=== PATIENT | female | born 1965 | race Two or more races ===

== ENCOUNTER 2023-05-17 20:29 | Emergency (ER) | payer MEDICAID, SELFPAY ==
--- NOTE | ~2023-05-17 | XR_ITS ---
EXAMINATION: XR KNEE, RIGHT CLINICAL INFORMATION: Pain COMPARISON: None available. TECHNIQUE: Four views of the right knee. FINDINGS: No significant joint effusion. Tricompartmental degenerative changes are present with osteophyte formation and mild loss of joint space more so in the medial compartment. No acute fracture or dislocation. No bony destructive lesions or periosteal reaction. XR/XR knee RT 3V IMPRESSION: Tricompartmental degenerative changes but no acute fracture or dislocation.
[2023-05-17 20:38] VITALS: BP 158/104; PULSE 99; RESP 18; TEMP 36.4; O2SAT 97; BMI 47.5
--- OUTSIDE RECORDS SUMMARY | 2023-05-17 20:58 | XMS_ITS | Continuity of Care Document ---
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
--- OUTSIDE RECORDS SUMMARY | 2023-05-17 20:58 | XMS_ITS | Continuity of Care Document ---
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 Role Phone Macy Quan Primary Care Physician [place] [facility] [place](s): 10/22/21 - 10/22/[address] [id number] Discharge Disposition: A-D/C Home Attending Physician: Arian Fenton MD Admitting Physician: Arian Fenton MD Referring Physician: Arian Fenton MD Allergies, Adverse Reactions, Alerts No Known Medication Allergies Medications OxyCODONE IR Tablet 5 mg, Tablet, By Mouth, Every 4 hours, in PACU ONLY, if patient can tolerate PO, PRN for Pain , Mild, Routine, 10/22/21 10:46:00 EDT Start Date: 10/22/21 Stop Date: 10/22/21 Status: Discontinued Vitamin D3 oral tablet 1 tablet = 10 mcg, By Mouth, Daily, 0 Refills, Maintenance, 10/18/21 12:07:00 EDT, Partial fill upon patient request if the prescription is for a schedule II opioid drug. Start Date: 10/18/21 Status: Ordered Problem List Condition Effective Dates Status Health Status Inform ant Severe obesity(Confirmed) Active Vital Signs Most recent to oldest [Reference Range]: 1 2 3 Height 157.48 cm (10/22/21 9:30 AM) 157.48 cm (10/18/21 12:15 PM) Weight 109.09 kg (10/22/21 9:30 AM) 109.09 kg (10/18/21 12:15 PM) Oxygen Saturation [94-100 %] 100 % (10/22/21 11:15 AM) 100 % (10/22/21 11:00 AM) 100 % (10/22/21 10:45 AM) Pulse Rate [55-90 bpm] 90 bpm (10/22/21 9:30 AM) Body Mass Index [18.5-24.99] 43.99 *>HHI* (10/22/21 9:30 AM) 43.99 *>HHI* (10/18/21 12:15 PM) Blood Pressure [90-138/55-84 mm Hg] 115/99mm Hg (10/22/21 11:15 AM) 124/73mm Hg (10/22/21 11:00 AM) 124/73mm Hg (10/22/21 10:45 AM) Respiratory Rate [16-30 br/min] 22 br/min (10/22/21 11:28 AM) 15 br/min *L* (10/22/21 11:15 AM) 21 br/min (10/22/21 11:00 AM) Temperature [96.8-100.4 DegF] 97.1 DegF (10/22/21 11:15 AM) 97 DegF (10/22/21 10:45 AM) 97 DegF (10/22/21 9:30 AM) Liters per Minute 5 L/min (10/22/21 10:45 AM) Mode of Delivery (Oxygen) Room air (10/22/21 11:15 AM) Room air (10/22/21 11:00 AM) Simple face mask (10/22/21 10:45 AM) Temperature Route Temporal (10/22/21 11:15 AM) Temporal (10/22/21 10:45 AM) Temporal (10/22/21 9:30 AM) Dry Weight 115.1 kg (10/22/21 9:30 AM) 109.09 kg (10/18/21 12:15 PM) Dry Weight Obtained Via Standing scale (10/22/21 9:30 AM)
--- NOTE | 2023-05-17 22:19 | ED_ITS ---
HPI - Extremity Injury (Lower) General Chief Complaint: Extremity Injury, Lower Stated Complaint: knee inj - fall Time Seen by Provider: 05/17/23 21:43 Source: patient Mode of arrival: ambulatory Limitations: no limitations History of Present Illness HPI Narrative: 57 yo female not on thinners fall yesterday mechanical when trying to get up injured R knee now swollen and painful has prior issues and injury to that same knee complaint: knee injury Onset (ago): day(s) (1) Injury: Right: knee Type of Injury: other (possible twisting getting up) Place: home Severity: moderate Relieving factors: rest Exacerbating factors: weight bearing, movement and palpation Context: fall Associated symptoms: swelling Other symptoms: none Related Data Previous Rx's Medication Instructions Recorded hydrocodone 5 mg-acetaminophen 325 1 tab PO Q6H PRN pain #10 tabs 05/17/23 mg tablet Allergies Allergy/AdvReac Type Severity Reaction Status Date / Time No Known Allergies Allergy Verified 05/17/23 20:44 Review of Systems Review of Systems: Constitutional : No Fever, No Chills Cardiovascular : No Chest Pain, No SOB Respiratory : No Cough, No Dyspnea Gastrointestinal : No Nausea, No Vomiting, No Diarrhea, No abdominal Pain Genitourinary : No Dysuria, No Hematuria Musculoskeletal : positive joint pain, No Myalgias, pos Joint Swelling Skin : No Skin lacerations, No rash Neuro : No Weakness, No Numbness, No Loss of Consciousness, No Dizziness, No Headache Psych : No Anxiety/Panic, No Depression All other systems reviewed and are negative [facility] Past Medical History Attestation statement: The following information was validated with the patient. Medical History Arthritis Social History Social History (Updated 05/17/23 @ 22:24 by Laurel Ngo DO) Patient Tobacco Use Status: Never used Tobacco Physical Exam Vital Signs: Vital Signs: Last Vital Signs Temp 97.6 F 05/17/23 20:38 Pulse 99 05/17/23 20:38 Resp 18 05/17/23 20:38 BP 158/104 H 05/17/23 20:38 Pulse Ox 97 05/17/23 20:38 O2 Del Method Room Air 05/17/23 20:38 BMI result Body Mass Index 47.5 Appearance: Alert. Oriented X3. No acute distress. Eyes: Pupils equal, round and reactive to light. ENT: Pharynx normal. Neck: Normal inspection. Neck supple. CVS: Normal heart rate and rhythm. Pulses normal. Respiratory: No respiratory distress. Breath sounds normal. Abdomen: Soft and nontender. Skin: Skin warm and dry. Normal skin color. Normal skin turgor. Extremities: No lower extremity edema. R knee small effusion distal NV intact ttp along medial joint line quad tendon and patella appear intact can make muscle can flex and dorsi flex foot Neuro: Oriented X 3. No motor deficit. No sensory deficit. Medical Decision Making Medical Decision Making [facility] Narrative: 57 yo female with hx of arthritis, scoliosis fell last night no head trauma or LOC reported tried to get up and injured R knee and now has pain and swelling in R knee - distal NV intact, quad and patella tendon appear intact has small effusion at this time immobilizer xray ordered. PO pain medications PCP referral Differential Diagnosis Differential Diagnoses: The differential diagnosis associated with the presentation includes sprain, strain, fracture Independent Interpretation I performed an independent interpretation of an: Plain X-Ray (no fracture) Radiology Impression Discussion of test interpretation with radiology: I have reviewed the radiologist's reading. Prescription Management I considered prescription management with: Pain Medication Procedures Orthopedic Splinting/Casting Injury #1: Side: right Lower Extremity Injury Location: knee Lower Extremity Immobilizer: knee immobilizer Discharge Plan Discharge Clinical Impression: Right knee sprain Qualifiers: Encounter type: initial encounter Involved ligament of knee: unspecified ligament Qualified Code(s): S83.91XA - Sprain of unspecified site of right knee, initial encounter Effusion of knee Qualifiers: Laterality: right Qualified Code(s): M25.461 - Effusion, right knee Patient Disposition: Home, Self-Care Instructions: Knee Sprain (DC), Swollen Knee Joint (ED) Additional Instructions: wear immobilizer for the next week call your primary care doctor for possible MRI if not better return for worsening swelling, pain, numbness tingling or any other concerns. Prescriptions: New hydrocodone-acetaminophen 5-325 mg tablet 1 tab PO Q6H PRN (Reason: pain) Qty: 10 0RF Rx Instructions: partial fill okay; Partial Fill upon patient request. Stand Alone Forms: Work/School Release
== END 2023-05-17 22:36 | disposition home or self-care (01) ==
PROVIDERS: Emergency Provider Emergency Medicine; PCP Registered Nurse
DX: S83.91XA Sprain of unspecified site of right knee, initial encounter (principal); W19.XXXA Unspecified fall, initial encounter; M25.461 Effusion, right knee; Y93.9 Activity, unspecified; Y92.9 Unspecified place or not applicable; Y99.9 Unspecified external cause status
CPT/HCPCS: 73562; 99282; 99283

== ENCOUNTER 2024-05-04 12:40 | Emergency (ER) | payer MEDICAID, SELFPAY ==
--- NOTE | 2024-05-04 12:56 | ED_ITS ---
HPI - Ear Problem General Chief complaint: Ear Problems Stated complaint: Ear infection Time Seen by Provider: 05/04/24 12:58 Source: patient Mode of arrival: ambulatory Limitations: no limitations History of Present Illness ED Provider: Lucio Davidson PA-C HPI Narrative: 50-year-old female presents to the ER for evaluation of left ear pain and muffled hearing for the last several days. She reports pain when she touches the outside of her ear, pain with swallowing and chewing. She states she sounds like she is underwater when she talks. She denies any drainage from the ear. No fever or chills. No pain in the right ear. No neck pain or dental pain. MD Complaint: ear pain and decreased hearing Location: left ear Duration: constant Severity: moderate Relieving factors: nothing Exacerbating factors: chewing, position of head and palpation Discharge from ear: no Associated symptoms ear: decreased hearing Treatment prior to arrival: none Related Data Previous Rx's ?Medication ?Instructions ?Recorded hydrocodone 5 mg-acetaminophen 325 1 tab PO Q6H PRN pain #10 tabs 05/17/23 mg tablet amoxicillin 875 mg-potassium 1 tab PO BID #14 tabs 05/04/24 clavulanate 125 mg tablet ofloxacin 0.3 % ear drops 10 drp otic (ears) DAILY 7 days 05/04/24 #10 mL Allergies Allergy/AdvReac Type Severity Reaction Status Date / Time No Known Allergies Allergy Verified 05/04/24 12:58 Review of Systems Review of Systems: Yes all other systems are reviewed and are negative [facility] Past Medical History Medical History Arthritis Social History Social History (Updated 05/17/23 @ 22:24 by Laurel Ngo DO) Patient Tobacco Use Status: Never used Tobacco Advance Directives: No Advance Directives Information Provided: Yes Physical Exam Vital Signs: Vital Signs: Last Vital Signs Temp 98.0 F 05/04/24 13:10 Pulse 97 05/04/24 13:10 Resp 20 05/04/24 13:10 BP 160/102 H 05/04/24 13:10 Pulse Ox 95 05/04/24 13:10 O2 Del Method Room Air 05/04/24 13:10 BMI result Body Mass Index 46.8 Appearance: Alert. Oriented X3. No acute distress. HEENT: normal inspection of the head and face. right EAC with cerumen partially obstructing the TM. left EAC diffusely swollen and boggy w/ white discharge, unable to visualize the TM. no mastoid tenderness. CVS: Normal heart rate and rhythm. Pulses normal. Respiratory: No respiratory distress. Skin: Skin warm and dry. Normal skin color. Normal skin turgor. No rashes. Extremities: normal inspection x4, no peripheral edema Neuro: Oriented X 3. grossly normal, nonfocal Medical Decision Making Medical Decision Making [facility] Narrative: 58-year-old female presents the ER for evaluation of left ear pain. Exam is consistent with otitis externa, unable to visualize TMs will empirically treat for otitis media as well. Patient counseled on diagnosis, treatment, management and return precautions. She will follow up with her PCP as needed. Stable for discharge home Differential Diagnosis Differential Diagnoses: The differential diagnosis associated with the presentation includes Otitis media, otitis externa, malignant effusion, mastoiditis Prescription Management I considered prescription management with: Pain Medication and Antibiotic Critical Care Time Critical Care Time Critical Care Time: No Discharge Plan Discharge Clinical Impression: Otitis externa Qualifiers: Otitis externa type: diffuse Chronicity: acute Laterality: left Qualified Code(s): H60.312 - Diffuse otitis externa, left ear Patient Disposition: Home, Self-Care Instructions: Otitis Externa (DC) Additional Instructions: Take the prescribed antibiotics as directed, complete the entire course and do not miss any doses Use the prescribed ear drops once per day for 1 week Do not get water in your ear Take motrin and tylenol as needed for pain Follow up with your doctor If you develop new or worsening symptoms call 911 or come back to the ER for further evaluation. Prescriptions: New ofloxacin 0.3 % drops 10 drp otic (ears) DAILY 7 Days Qty: 10 0RF amoxicillin-pot clavulanate 875-125 mg tablet 1 tab PO BID Qty: 14 0RF No Action hydrocodone-acetaminophen 5-325 mg tablet 1 tab PO Q6H PRN (Reason: pain) Qty: 10 0RF Rx Instructions: partial fill okay; Partial Fill upon patient request. Interventions: ED Discharge Assessment Last Done: 05/04/24 13:10 Discharge Date/Time: 05/04/24 13:11 Print Language: Swiss
[2024-05-04 12:57] VITALS: BP 160/102; PULSE 97; RESP 20; TEMP 36.7; O2SAT 95; BMI 46.8
[2024-05-04 13:10] VITALS: BP 160/102; PULSE 97; RESP 20; TEMP 36.7; O2SAT 95
--- OUTSIDE RECORDS SUMMARY | 2024-05-04 14:53 | XMS_ITS | Clinical Summary ---
Author Organization 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 Phone Macy Wang Primary Care Provider Unavailab le Social History Tobacco Use Types Packs/Day Years Used Date Smoking Tobacco: Never Assessed Sex and Gender Information Value Date Recorded Sex Assigned at Not on file Gender Identity Not on file Sexual Orientation Not on file Last Filed Vital Signs Vital Sign Reading Time Taken Comments Blood Pressure 138/76 01/27/2022 11:48 AM EDT L Arm Pulse 98 01/27/2022 11:48 AM EDT Temperature - - Respiratory Rate - - Oxygen Saturation - - Inhaled Oxygen Concentration - - Weight - - Height - - Body Mass Index - - Plan of Treatment Health Maintenance Due Date Last Done Comments Breast Cancer Screening 1965 DTaP,Tdap,and Td Vaccines (1 - Tdap) 1984 Hepatitis B Vaccines (1 of 3 - 19+ 3-dose series) 1984 Cervical Cancer Screening: P ap Smear 1986 Zoster Vaccines (1 of 2) 12/25/2015 Colorectal Cancer Screening: Colonoscopy 03/17/2022 Depression Screening 03/17/2022 HIV Screening 03/17/2022 Hepatitis C Screening 03/17/2022 Social Influencers of Health Screening 03/17/2022 COVID-19 Vaccine ( - 2023-2 5 season) 2023 Influenza Vaccine (#1) 2023 HIB Vaccines Aged Out No longer eligi ble based on patient's age to complete this topic HPV Vaccines Aged Out No longer eligi ble based on patient's age to complete this topic Hepatitis A Vaccines Aged Out No long er eligible based on patient's age to complete this topic IPV Vaccines Aged Out No longer eligi ble based on patient's age to complete this topic MMR Vaccines Aged Out No longer eligi ble based on patient's age to complete this topic Meningococcal ACWY Vaccine Aged Out N o longer eligible based on patient's age to complete this topic Pneumococcal Vaccine: Pediat rics (0 to 5 Years) and At-Risk Patients (6 to 64 Years) Aged Out No longer eligible b ased on patient's age to complete this topic RSV Immunization Patients Un verna 20 months Aged Out No longer eligible b ased on patient's age to complete this topic Varicella Vaccines Aged Out No longer eligible based on patient's age to complete this topic Care Teams Red Hat Linux Engineer Relationship Specialty Start Date End Date Macy Wang PA Need Updated Address PCP - General 07/18/21
== END 2024-05-04 13:11 | disposition home or self-care (01) ==
LOC: HO.ED 13:06
PROVIDERS: Emergency Provider Emergency Medicine
DX: H60.312 Diffuse otitis externa, left ear (principal)
CPT/HCPCS: 99282; 99283

== ENCOUNTER 2024-07-04 21:36 | Emergency (ER) | payer MEDICAID, SELFPAY ==
[2024-07-04 21:39] VITALS: BP 151/119; PULSE 93; RESP 16; TEMP 36.6; O2SAT 99; BMI 46.8
--- NOTE | 2024-07-05 01:13 | ED_ITS ---
HPI - General Adult General Chief complaint: Ear Problems Stated complaint: Right Ear infection / in pain Time Seen by Provider: 07/05/24 01:06 Source: patient, RN notes reviewed and old records reviewed Mode of arrival: ambulatory Limitations: no limitations History of Present Illness ED Provider: Marisel HPI narrative: 58-year-old female who denies any past medical history presents for evaluation of right ear pain. Patient reports she was infection a couple of months ago in the left side She now reports that she has the same pain but on the right ear She did not stick anything in the ear other than Debrox drops She denies any drainage from the ear No other concerns at this time Related Data Previous Rx's ?Medication ?Instructions ?Recorded hydrocodone 5 mg-acetaminophen 325 1 tab PO Q6H PRN pain #10 tabs 05/17/23 mg tablet amoxicillin 875 mg-potassium 1 tab PO BID #14 tabs 05/04/24 clavulanate 125 mg tablet ofloxacin 0.3 % ear drops 10 drp otic (ears) DAILY 7 days 05/04/24 #10 mL amoxicillin 875 mg-potassium 1 tab PO Q12H #20 tabs 07/05/24 clavulanate 125 mg tablet Allergies Allergy/AdvReac Type Severity Reaction Status Date / Time No Known Allergies Allergy Verified 07/04/24 21:41 Review of Systems Constitutional: Constitutional: Denies body ache(s), Denies chills and Denies fever(s) Eyes: Eyes: Denies blurry vision ENT: Denies ear discharge, Reports otalgia and Denies sore throat Cardiovascular: Cardiovascular: Denies chest pain and Denies dyspnea Respiratory: Respiratory: Denies cough and Denies dyspnea Gastrointestinal: Gastrointestinal: Denies abdominal pain [facility] Past Medical History Medical History Arthritis Social History Social History (Updated 05/17/23 @ 22:24 by Laurel Ngo DO) Patient Tobacco Use Status: Never used Tobacco Advance Directives: No Advance Directives Information Provided: Yes Do you have a plan to hurt others: No Plan Physical Exam ED Vital Signs: Vital Signs - 24 hr 07/04/24 21:39 Temperature 97.8 F Pulse Rate 93 Respiratory Rate 16 Blood Pressure 151/119 H Pulse Oximetry 99 Oxygen Delivery Method Room Air BMI result Body Mass Index 46.8 Const General: healthy appearing, comfortable, no acute distress, alert and awake Nutritional Appearance: well nourished Orientation/consciousness: patient oriented x3 HENMT Other: There is mild cerumen buildup in the right external ear canal but no impaction. No mastoid tenderness, no posterior auricular edema Head: Yes normocephalic and Yes atraumatic Ears: right TM abnormal (TM erythematous and bulging) and TM normal on the left Eyes Eyelids: Yes eyelids normal Conjunctivae: conjunctivae normal Sclerae: sclerae normal Corneas: corneas normal Pupils: Equal, round and reactive pupils present EOM: EOMs intact bilaterally Neck Neck: Yes full ROM Resp Effort & Inspection: normal respiratory effort, able to speak in complete sentences and not labored Skin General skin exam: elasticity normal Neuro General: patient oriented x3 Cranial nerves: Yes Equal, round and reactive pupils present and Yes Bilaterally intact EOM present Cognition (Neuro): normal cognition Extrem Other: Moving all extremities well without any obvious deformities Medical Decision Making Medical Decision Making MDM Narrative: 58-year-old female presents for evaluation of right ear pain. She did not stick anything in her ear, her exam is consistent with the acute right otitis media. No evidence of mastoiditis or otitis externa. We will discharge the patient with Augmentin which she took 2 months ago with good relief of her left ear pain Differential Diagnosis Differential Diagnoses: The differential diagnosis associated with the presentation includes Otitis media Otitis externa Middle ear effusion Mastoiditis Discharge Plan Discharge Clinical Impression: Otitis media Patient Disposition: Home, Self-Care Instructions: Ear Infection (ED) Additional Instructions: You appear to have an ear infection on the right. Take the Augmentin twice daily for 10 days. You may also try a couple of drops of white vinegar 3 times a day to help with the pain. I would not stick anything including a Q-tip in the ear Follow-up with your Primary doctor and/or your ear nose and throat provider Prescriptions: New amoxicillin-pot clavulanate 875-125 mg tablet 1 tab PO Q12H Qty: 20 0RF No Action ofloxacin 0.3 % drops 10 drp otic (ears) DAILY 7 Days Qty: 10 0RF amoxicillin-pot clavulanate 875-125 mg tablet 1 tab PO BID Qty: 14 0RF hydrocodone-acetaminophen 5-325 mg tablet 1 tab PO Q6H PRN (Reason: pain) Qty: 10 0RF Rx Instructions: partial fill okay; Partial Fill upon patient request. Print Language: Persian
[2024-07-05 01:30] VITALS: BP 151/119; PULSE 93; RESP 16; TEMP 36.6; O2SAT 99
== END 2024-07-05 04:37 | disposition home or self-care (01) ==
PROVIDERS: Emergency Provider Emergency Medicine
DX: H66.91 Otitis media, unspecified, right ear (principal); H92.01 Otalgia, right ear
CPT/HCPCS: 99282; 99283